=== PATIENT | female | born 1940 | race Caucasian/White ===

== ENCOUNTER → 2023-01-11 10:36 | Outpatient (BNVA) | payer MEDICARE, SELFPAY | PROVIDERS: Visit Provider Podiatrist Foot & Ankle Surgery | DX: L84 Corns and callosities (principal); M20.41 Other hammer toe(s) (acquired), right foot | CPT/HCPCS: 99203 ==

== ENCOUNTER 2023-02-09 14:42 | Outpatient (CLI) | payer MEDICARE, SELFPAY ==
--- NOTE | 2023-02-09 15:46 | MR_ITS ---
WS: [id number] MRI HEAD WITH CONTRAST WITH ATTENTION TO THE INTERNAL AUDITORY CANALS TECHNIQUE: Sagittal T1, T2 axial, T2 axial flair, axial susceptibility weighted imaging, axial diffus ion weighted images, and coronal T2 images were obtained. Pre and post T1 axial and post T1 coronal i mages. ADC and FSPGR images. Post gadolinium images with attention to the internal auditory canals. A xial fiesta imaging. CLINICAL INFORMATION: OTHER SPECIFIED HEARING LOSS, BILATERAL COMPARISON: None. FINDINGS: No evidence restricted diffusion to suggest acute ischemia. Ventricular system and Basal cisterns are patent. Mild small vessel changes. Mild parenchymal volume loss. Normal posterior fossa. Normal vasc ular flow voids at the skull base. No extra-axial fluid collections. No evidence of mass or mass effe ct. Mild mucosal thickening ethmoid air cells. Paranasal sinuses are otherwise well aerated. Mastoid air cells well aerated. Normal parapharyngeal fat. No hemosiderin on the susceptibly weighted images. Mild symmetric atrophy temporal lobes and hippocam pal formations. Proximal 7th and 8th cranial nerves are normal in appearance. A few chronic foci of h emosiderin in the LEFT basal ganglia and LEFT cerebellum. No evidence of enhancing IAC or CP angle mass. Normal trigeminal nerve root entry zones. No abnormal intracranial enhancement. Normal dural venous sinuses. MR/MR iac's wo/w con* [id number] IMPRESSION: 1. No evidence of restricted diffusion to suggest acute ischemia. 2. Proximal 7th and 8th cranial nerves appear normal. No evidence of enhancing IAC or CP angle mass. 3. Normal trigeminal nerve root entry zones. 4. Mastoid air cells well aerated. Mild mucosal thickening in the ethmoid air cells. 5. Mild small vessel changes with mild parenchymal volume loss. 6. No other suspicious findings.
== END 2023-02-09 14:43 | disposition home or self-care (01) ==
PROVIDERS: PCP Family Medicine; Visit Provider Otolaryngology
DX: H91.8X3 Other specified hearing loss, bilateral (principal)
CPT/HCPCS: 70553; A9577

== ENCOUNTER → 2023-05-11 10:22 | Outpatient (BNVA) | payer MEDICARE, SELFPAY | PROVIDERS: PCP Family Medicine; Visit Provider Podiatrist Foot & Ankle Surgery | DX: L84 Corns and callosities (principal); M20.41 Other hammer toe(s) (acquired), right foot | CPT/HCPCS: 99213 ==

== ENCOUNTER → 2024-02-01 13:14 | Outpatient (BNVA) | payer MEDICARE, SELFPAY | PROVIDERS: PCP Family Medicine; Visit Provider Podiatrist Foot & Ankle Surgery | DX: L84 Corns and callosities; M20.41 Other hammer toe(s) (acquired), right foot; M77.41 Metatarsalgia, right foot | CPT/HCPCS: 99213 ==

== ENCOUNTER 2024-10-30 10:13 | Outpatient (CLI) | payer MEDICARE, SELFPAY | END 2024-10-30 10:14 | disposition home or self-care (01) | LOC: SLEEP 10:13 | PROVIDERS: PCP Family Medicine; Visit Provider Specialist | DX: G47.33 Obstructive sleep apnea (adult) (pediatric) (principal) | CPT/HCPCS: G0399 ==

== ENCOUNTER → 2025-03-15 10:46 | Outpatient (BNVA) | payer MEDICARE, SELFPAY | PROVIDERS: PCP Family Medicine; Visit Provider Podiatrist Foot & Ankle Surgery | DX: M79.671 Pain in right foot (principal); L84 Corns and callosities; M20.41 Other hammer toe(s) (acquired), right foot; M77.41 Metatarsalgia, right foot | CPT/HCPCS: 99213 ==

== ENCOUNTER → 2025-05-30 10:06 | Outpatient (BNVA) | payer MEDICARE, SELFPAY | PROVIDERS: PCP Family Medicine; Visit Provider Podiatrist Foot & Ankle Surgery | DX: L84 Corns and callosities (principal); M20.41 Other hammer toe(s) (acquired), right foot; M77.41 Metatarsalgia, right foot | CPT/HCPCS: 99213 ==

== ENCOUNTER → 2025-07-17 14:32 | Outpatient (BNVA) | payer MEDICARE, SELFPAY | PROVIDERS: PCP Family Medicine; Visit Provider Orthopaedic Surgery | DX: M48.062 Spinal stenosis, lumbar region with neurogenic claudication (principal); M43.16 Spondylolisthesis, lumbar region | CPT/HCPCS: 72110; 99203 ==

== ENCOUNTER 2025-08-07 10:40 | Outpatient (CLI) | payer MEDICARE, SELFPAY ==
--- NOTE | 2025-08-07 11:00 | MR_ITS ---
WS: [id number] MRI LUMBAR SPINE NONCONTRAST TECHNIQUE: Sagittal T1, T2 and STIR imaging. Axial T1 and T2 imaging. CLINICAL INFORMATION: low back pain COMPARISON: none FINDINGS: Mild lumbar curve. No acute compression. Slight anterolisthesis L3 on L4 and L4 on L5. Prior laminectomies L3-4 and L4-5. L1-L2: Mild annular bulging. Slight narrowing of the LEFT subarticular recess. Mild facet arthropathy. Mild LEFT foraminal narrowing. L2-L3: Mild disc bulging with mild central canal stenosis. Impingement traversing L3 nerve roots bilaterally. Moderate facet arthropathy. Severe LEFT foraminal narrowing with LEFT foraminal protrusion. Mild RIGHT foraminal narrowing. L3-L4: Grade 1 anterolisthesis. Impingement on the RIGHT subarticular recess and traversing RIGHT L4 nerve root. Moderate RIGHT foraminal narrowing. Mild LEFT foraminal narrowing. Moderate facet arthropathy. L4-L5: Grade 1 anterolisthesis. Impingement of the subarticular recess bilaterally. Moderate RIGHT and mild LEFT foraminal narrowing. Moderate facet arthropathy. Laminectomy defects. L5-S1: Mild disc bulging with a small annular fissure. Mild facet arthropathy. Foramen are patent. Moderate facet arthropathy. Visualized pelvic bony structures: Normal. Paravertebral soft tissues: Normal. MR/MR lumbar spine wo con* [id number] IMPRESSION: 1. Mild lumbar curve. No acute compression. Slight anterolisthesis L3 on L4 an d L4 and L5. 2. Prior laminectomies L3-4 and L4-5. 3. Mild central canal stenosis L2-3 with impingement on the subarticular reces s bilaterally. 4. Mild narrowing of the RIGHT L3-4 and bilateral L4-5 subarticular recess. 5. Severe LEFT L2-3 foraminal narrowing. LEFT foraminal protrusion. 6. Moderate RIGHT L3-4 foraminal narrowing with a RIGHT foraminal protrusion.
== END 2025-08-07 10:41 | disposition home or self-care (01) ==
LOC: RAD 10:41
PROVIDERS: PCP Family Medicine; Visit Provider Orthopaedic Surgery
DX: M48.062 Spinal stenosis, lumbar region with neurogenic claudication (principal); M43.8X6 Other specified deforming dorsopathies, lumbar region; Z98.890 Other specified postprocedural states; R93.7 Abnormal findings on diagnostic imaging of other parts of musculoskeletal system; M51.26 Other intervertebral disc displacement, lumbar region; M51.369 Other intervertebral disc degeneration, lumbar region without mention of lumbar back pain or lower extremity pain; M47.896 Other spondylosis, lumbar region; M51.379 Other intervertebral disc degeneration, lumbosacral region without mention of lumbar back pain or lower extremity pain; M47.897 Other spondylosis, lumbosacral region
CPT/HCPCS: 72148

== ENCOUNTER → 2025-08-21 10:45 | Outpatient (BNVA) | payer MEDICARE, SELFPAY | PROVIDERS: PCP Family Medicine; Visit Provider Orthopaedic Surgery | DX: M48.061 Spinal stenosis, lumbar region without neurogenic claudication (principal) | CPT/HCPCS: 99213 ==

== ENCOUNTER → 2025-08-30 13:26 | Outpatient (BNVA) | payer MEDICARE, SELFPAY | PROVIDERS: PCP Family Medicine; Visit Provider Podiatrist Foot & Ankle Surgery | DX: M77.41 Metatarsalgia, right foot (principal); L84 Corns and callosities; M20.41 Other hammer toe(s) (acquired), right foot; M84.374A Stress fracture, right foot, initial encounter for fracture | CPT/HCPCS: 73630; 99214 ==

== ENCOUNTER → 2025-09-13 10:44 | Outpatient (BNVA) | payer MEDICARE, SELFPAY | PROVIDERS: PCP Family Medicine; Visit Provider Nurse Practitioner Family | DX: M54.9 Dorsalgia, unspecified (principal) | CPT/HCPCS: 99204 ==

== ENCOUNTER → 2025-09-18 10:22 | Outpatient (BNVA) | payer MEDICARE, SELFPAY | PROVIDERS: PCP Family Medicine; Visit Provider Podiatrist Foot & Ankle Surgery | DX: M77.41 Metatarsalgia, right foot (principal); Z79.899 Other long term (current) drug therapy; B35.1 Tinea unguium; L84 Corns and callosities; M20.41 Other hammer toe(s) (acquired), right foot; M84.374A Stress fracture, right foot, initial encounter for fracture | CPT/HCPCS: 73630; 99214 ==

== ENCOUNTER → 2025-10-10 09:23 | Outpatient (BNVA) | payer MEDICARE, SELFPAY | PROVIDERS: PCP Family Medicine; Visit Provider Nurse Practitioner Family | DX: M51.362 Other intervertebral disc degeneration, lumbar region with discogenic back pain and lower extremity pain (principal); M47.816 Spondylosis without myelopathy or radiculopathy, lumbar region | CPT/HCPCS: 99214 ==